=== PATIENT | female | born 1980 | race Caucasian/White ===

== ENCOUNTER → 2023-05-17 18:14 | Outpatient (REF) | payer OTHER, SELFPAY | LOC: MRI 3T 18:14 | PROVIDERS: ATTENDING PHYSICIAN Obstetrics & Gynecology; FAMILY PHYSICIAN Family Medicine | DX: R93.89 Abnormal findings on diagnostic imaging of other specified body structures (principal) | CPT/HCPCS: 72197; A9575 ==

== ENCOUNTER 2023-08-15 06:12 | Day surgery (SDC) | payer OTHER, SELFPAY ==
[2023-07-19 09:27] VITALS: BMI 21.4
[2023-07-19 09:59] LABS: % Eosinophils 2.5 % (0-6); % Immature Granulocytes 0.3 % (0-0.5); % Lymphocytes 24.7 % (20.5-51.1); % Monocytes 9.6 % (1.7-9.3); % Neutrophils 60.9 % (42.2-75.2); Absolute Basophils 0.1 10^3/uL (0-0.2); Absolute Eosinophils 0.2 10^3/uL (0-0.7); Absolute Lymphocytes 1.5 10^3/uL (1.2-3.4); Absolute Monocytes 0.6 10^3/uL (0.1-0.6); Absolute Neutrophils 3.6 10^3/uL (1.4-6.5); Hematocrit 39.2 % (37.0-47.0); Hemoglobin 12.9 g/dL (12.0-16.0); Mean Corp Hgb Conc. 32.9 g/dL (33.0-37.0); Mean Corpuscular Hgb 28.9 pg (27.0-31.0); Mean Corpuscular Volume 87.9 fL (81.0-99.0); Mean Platelet Volume 10.6 fL (7.4-10.4); Nucleated Red Blood Cells % 0 %; Platelet Count 360 10^3/uL (130-400); Red Blood Cell Count 4.46 10^6/uL (4.20-5.40); Red Cell Dist. Width 14.9 % (11.5-14.5); White Blood Cell Count 5.9 10^3/uL (4.8-10.8)
[2023-07-19 12:37] LABS: Blood Urea Nitrogen 11 mg/dl (7-17); Calcium 9.3 mg/dl (8.4-10.2); Carbon Dioxide 25 mmol/L (22-30); Chloride 103 mmol/L (98-107); Estimated Creatinine Clearance 116 ml/min; Glucose 97 mg/dl (70-99); Potassium 4.5 mmol/L (3.5-5.1); Sodium 134 mmol/L (135-145); eGFR > 60.00
[2023-08-15] VITALS (9 sets, daily range): BP systolic 96–141; BP diastolic 57–95; BMI 21.4
[2023-08-15] MEDS: NORMOSOL-R 1000 IV (06:37)
[2023-08-15] MEDS: NEURONTIN 300 MG PO (06:37)
[2023-08-15] MEDS: TYLENOL 1000 MG PO (06:37)
[2023-08-15] MEDS: HEPARIN 5000 UNITS SC (06:38)
--- NOTE | 2023-08-15 10:15 | W.IMMPOSTOP ---
Surgical Immed Post Op Note
-
Primary Surgeon: Dd. Sushma Fernandez
[employer] Operator: Lv
Pre-op Diagnosis: Menorrhagia, right ovarian cyst/endometrioma, left ovarian cyst, pelvic adhesions, uterine fibroid
Post-op Diagnosis: same
Procedure Performed: Hysteroscopy D&C, Robotic laparoscopic RSO, lysis adhesions, left ovarian cystectomy, excision and fulgeration of endometriosis, myomectomy
Anesthesia Type: general ET. Dr. Erickson
Specimen / Cultures:
1. endocervical curettings
2. Endometrial curettings
3. posterior cul de sac endometriosis implant
4. anterior pelvic peritoneal endometriosis implants (multiple submitted together)
5. left lateral pelvic endometriosis implants (2)
6. right tube and ovary/endometrioma cyst
7. left ovarian cyst wall
8. Fibroid
Estimated Blood Loss: 5ml
Urine output: 250ml
Complications: none
Operative Findings: Hysteroscopy findings: Uterus sounded to 7cm, bilateral tubal ostia seen. No evidence of polyp or mass
Laparoscopic findings:
1. Enlarged Right ovary with 5cm endometriosis cyst and filmy adhesions to back of uterus
2. Left ovary with simple cyst and superifical endometriosis implants -fuglerated
3. Multiple endometriosis implants:
- posterior cul de sac
- anterior pelvic peritoneal implants 4-5 superficial dark brown endometriosis implants approx 3-5 mm, several clear vesicles endometriosis;
- left pelvic peritoneal 2-3 mm superficial implants endometriosis.
- Several implants endometriosis along left fallopian tube.
4. Filmy adhesions along peritoneal reflection near sigmoid-lysed.
5.Uterus with pedunculated fibroid approx 4cm attached very superficially to posterior uterine body. No invasion into myometrium.
Counts correct x 2.
Stable to recovery.
[2023-08-15] MEDS: DILAUDID 0.5 MG IV (10:44)
[2023-08-15] MEDS: ZOFRAN 4 MG IV (10:44)
[2023-08-15] MEDS: ROXICODONE 5 MG PO (12:15)
== END 2023-08-15 12:40 | disposition home or self-care (01) ==
LOC: SDS 06:12
PROVIDERS: ATTENDING PHYSICIAN Obstetrics & Gynecology; FAMILY PHYSICIAN Family Medicine
DX: D25.9 Leiomyoma of uterus, unspecified (principal); N80.121 Deep endometriosis of right ovary; N83.202 Unspecified ovarian cyst, left side; N73.6 Female pelvic peritoneal adhesions (postinfective); N92.0 Excessive and frequent menstruation with regular cycle
CPT/HCPCS: 58545; 58662; 58558; 88305; 36415; 80048; 85025; 86850; 86900; 86901

== ENCOUNTER 2023-12-15 06:26 | Outpatient (RCR) | payer OTHER, SELFPAY | END 2023-12-15 23:59 | disposition home or self-care (01) | LOC: RPT 06:26 | PROVIDERS: ATTENDING PHYSICIAN Family Medicine | DX: N92.1 Excessive and frequent menstruation with irregular cycle (principal); R53.83 Other fatigue; R25.2 Cramp and spasm; M62.81 Muscle weakness (generalized); R10.2 Pelvic and perineal pain | CPT/HCPCS: 97163; 97530 ==

== ENCOUNTER 2024-01-12 07:05 | Outpatient (RCR) | payer OTHER, SELFPAY | END 2024-01-12 23:59 | disposition home or self-care (01) | LOC: RPT 07:05 | PROVIDERS: ATTENDING PHYSICIAN Family Medicine | DX: R10.2 Pelvic and perineal pain (principal); N92.1 Excessive and frequent menstruation with irregular cycle; R53.83 Other fatigue; M62.81 Muscle weakness (generalized); Z73.6 Limitation of activities due to disability | CPT/HCPCS: 97014; 97140; 97530 ==

== ENCOUNTER 2024-02-09 13:12 | Outpatient (RCR) | payer OTHER, SELFPAY | END 2024-02-09 23:59 | disposition home or self-care (01) | LOC: RPT 13:12 | PROVIDERS: ATTENDING PHYSICIAN Family Medicine | DX: R10.2 Pelvic and perineal pain (principal); N92.1 Excessive and frequent menstruation with irregular cycle; R53.83 Other fatigue; M62.81 Muscle weakness (generalized); R25.2 Cramp and spasm; Z73.6 Limitation of activities due to disability | CPT/HCPCS: 97014; 97110; 97140; 97530 ==

== ENCOUNTER 2024-03-08 08:59 | Outpatient (RCR) | payer OTHER, SELFPAY | END 2024-03-08 23:59 | disposition home or self-care (01) | LOC: RPT 08:59 | PROVIDERS: ATTENDING PHYSICIAN Family Medicine | DX: R10.2 Pelvic and perineal pain (principal); N92.1 Excessive and frequent menstruation with irregular cycle; R53.83 Other fatigue; M62.81 Muscle weakness (generalized); Z73.6 Limitation of activities due to disability; R25.2 Cramp and spasm | CPT/HCPCS: 97110; 97140; 97530 ==

== ENCOUNTER 2024-04-19 08:58 | Outpatient (RCR) | payer OTHER, SELFPAY | END 2024-04-19 23:59 | disposition home or self-care (01) | LOC: RPT 08:58 | PROVIDERS: ATTENDING PHYSICIAN Family Medicine | DX: N92.1 Excessive and frequent menstruation with irregular cycle; R53.83 Other fatigue; R25.2 Cramp and spasm; R10.2 Pelvic and perineal pain; M62.81 Muscle weakness (generalized); Z73.6 Limitation of activities due to disability | CPT/HCPCS: 97110; 97112; 97140; 97530 ==

== ENCOUNTER 2024-05-16 12:01 | Outpatient (RCR) | payer OTHER, SELFPAY | END 2024-05-16 23:59 | disposition home or self-care (01) | LOC: RPT 12:01 | PROVIDERS: ATTENDING PHYSICIAN Family Medicine | DX: N92.1 Excessive and frequent menstruation with irregular cycle (principal); R53.83 Other fatigue; R25.2 Cramp and spasm; R10.2 Pelvic and perineal pain; M62.81 Muscle weakness (generalized); Z73.6 Limitation of activities due to disability | CPT/HCPCS: 97110; 97112; 97140 ==

== ENCOUNTER 2024-06-18 07:18 | Outpatient (RCR) | payer OTHER, SELFPAY | END 2024-06-18 23:59 | disposition home or self-care (01) | LOC: RPT 07:18 | PROVIDERS: ATTENDING PHYSICIAN Family Medicine | DX: N92.1 Excessive and frequent menstruation with irregular cycle (principal); R53.83 Other fatigue; M62.81 Muscle weakness (generalized); Z73.6 Limitation of activities due to disability; R10.2 Pelvic and perineal pain; R25.2 Cramp and spasm | CPT/HCPCS: 97110; 97530 ==

== ENCOUNTER 2024-09-11 10:16 | Outpatient (RCR) | payer OTHER, SELFPAY | END 2024-09-11 23:59 | disposition home or self-care (01) | LOC: RPT 10:16 | PROVIDERS: ATTENDING PHYSICIAN Family Medicine | DX: N92.1 Excessive and frequent menstruation with irregular cycle (principal); R53.83 Other fatigue; M62.81 Muscle weakness (generalized); Z73.6 Limitation of activities due to disability; R10.2 Pelvic and perineal pain; R25.2 Cramp and spasm | CPT/HCPCS: 97110; 97112; 97163; 97530 ==

== ENCOUNTER 2024-10-03 13:15 | Outpatient (RCR) | payer OTHER, SELFPAY | END 2024-10-03 23:59 | disposition home or self-care (01) | LOC: RPT 13:15 | PROVIDERS: ATTENDING PHYSICIAN Family Medicine | DX: N92.1 Excessive and frequent menstruation with irregular cycle (principal); R53.83 Other fatigue; R25.2 Cramp and spasm; M62.81 Muscle weakness (generalized); Z73.6 Limitation of activities due to disability; R10.2 Pelvic and perineal pain | CPT/HCPCS: 97110; 97140; 97530 ==

== ENCOUNTER 2024-11-15 09:15 | Outpatient (RCR) | payer OTHER, SELFPAY | END 2024-11-15 23:59 | disposition home or self-care (01) | LOC: RPT 09:15 | PROVIDERS: ATTENDING PHYSICIAN Family Medicine | DX: N92.1 Excessive and frequent menstruation with irregular cycle (principal); R53.83 Other fatigue; R25.2 Cramp and spasm; M62.81 Muscle weakness (generalized); Z73.6 Limitation of activities due to disability; R10.2 Pelvic and perineal pain | CPT/HCPCS: 97110; 97112; 97140; 97530 ==

== ENCOUNTER 2025-01-22 09:26 | Outpatient (RCR) | payer OTHER, SELFPAY | END 2025-01-22 23:59 | disposition home or self-care (01) | LOC: RPT 09:26 | PROVIDERS: ATTENDING PHYSICIAN Family Medicine | DX: N92.1 Excessive and frequent menstruation with irregular cycle (principal); R53.83 Other fatigue; R25.2 Cramp and spasm; M62.81 Muscle weakness (generalized); Z73.6 Limitation of activities due to disability; R10.20 Pelvic and perineal pain unspecified side; R10.2 Pelvic and perineal pain | CPT/HCPCS: 97530 ==

== ENCOUNTER → 2025-02-16 09:36 | Outpatient (REF) | payer OTHER, SELFPAY | LOC: MRI 3T 09:36 | PROVIDERS: ATTENDING PHYSICIAN Physician Assistant Medical; FAMILY PHYSICIAN Family Medicine | DX: N80.9 Endometriosis, unspecified (principal) | CPT/HCPCS: 72197; A9575 ==